=== PATIENT | female | born 1970 | race Caucasian/White ===

== ENCOUNTER 2017-01-10 17:20 | Emergency (ER) | payer BC ==
--- NOTE | 2017-01-10 20:42 | RAD ---
INDICATION: Chest pain COMPARISON: None TECHNIQUE: PA and lateral dual-energy views were obtained. FINDINGS: Bones/Soft Tissues: There are no acute bony findings. Cardiomediastinal: The cardiomediastinal silhouette is normal. Lungs: There are no infiltrates. Pleura: There are no pleural effusions. Other: None IMPRESSION: NO ACTIVE DISEASE
--- NOTE | 2017-01-10 20:54 | ED ---
HPI Chest Pain - HPI Summary HPI Summary: 46 yr old female with the complaint of chest pain. Onset a couple of days ago after getting elbowed in the right chest wall by her kids. She has pain on movement and deep breath. She has not seen a bruise. She has had pain with movement. No SOB. No other complaints. - History of Current Complaint Chief Complaint: UCGeneralIllness Time Seen by Provider: 01/10/17 19:40 Hx Last Menstrual Period: 12/20/16 - Allergy/Home Medications Allergies/Adverse Reactions: Allergies Allergy/AdvReac Type Severity Reaction Status Date / Time Latex Allergy Rash Verified 01/10/17 18:01 Home Medications: Home Medications Ibuprofen TAB* [Advil TAB*] 400 mg PO Q6H PRN 01/10/17 [History Confirmed ] PMH/Surg Hx/FS Hx/Imm Hx Previously Healthy: Yes Endocrine/Hematology History: Denies: Hx Anticoagulant Therapy, Hx Diabetes, Hx Thyroid Disease Cardiovascular History: Denies: Hx Congestive Heart Failure, Hx Deep Vein Thrombosis, Hx Hypertension , Hx Myocardial Infarction, Hx Pacemaker/ICD Respiratory History: Denies: Hx Asthma, Hx Chronic Obstructive Pulmonary Disease (COPD), Hx Lung Cancer, Hx Pneumonia, Hx Pulmonary Embolism GI History: Denies: Hx Gall Bladder Disease, Hx Gastrointestinal Bleed, Hx Ulcer, Hx Urosepsis History: Denies: Hx Kidney Stones, Hx Renal Disease Musculoskeletal History: Reports: Other Musculoskeletal History - chest wall pain Neurological History: Reports: Hx Seizures - Until she was [age] years old "due to her ." Denies: Hx Dementia, Hx Migraine, Hx Transient Ischemic Attacks (TIA) Psychiatric History: Denies: Hx Anxiety, Hx Depression, Hx Schizophrenia, Hx Bipolar Disorder - Surgical History Surgery Procedure, Year, and Place: tubal ligation. TONSILLECTOMY Infectious Disease History: No Infectious Disease History: Denies: History Other Infectious Disease, Traveled Outside the [place] in Last 30 Days - Family History Known Family History: Positive: Cardiac Disease, Hypertension, Diabetes - Social History Alcohol Use: Rare Substance Use Type: Reports: None Smoking Status (MU): Never Smoked Tobacco Review of Systems Constitutional: Negative Positive: Other - chest wall pain Negative: Bruising All Other Systems Reviewed And Are Negative: Yes Physical Exam Triage Information Reviewed: Yes Vital Signs On Initial Exam: Initial Vitals Temp Pulse Resp BP Pulse Ox 98.9 F 73 16 110/63 100 01/10/17 17:55 01/10/17 17:55 01/10/17 17:55 01/10/17 17:55 01/10/17 17:55 Vital Signs Reviewed: Yes Appearance: Positive: Well-Appearing, No Pain Distress Skin: Positive: Warm Head/Face: Positive: Normal Head/Face Inspection Eyes: Positive: EOMI Neck: Positive: Nontender Respiratory/Lung Sounds: Positive: Clear to Auscultation, Breath Sounds Present , Other - tender over the right chest wall, no bruises. Cardiovascular: Positive: RRR. Negative: Murmur Abdomen Description: Positive: Nontender Musculoskeletal: Positive: Strength/ROM Intact Neurological: Positive: Sensory/Motor Intact, Alert, Oriented to Person Place, Time, CN Intact II-III Psychiatric: Positive: Normal - Harvinder Coma Scale Best Eye Response: 4 - Spontaneous Best Motor Response: 6 - Obeys Commands Best Verbal Response: 5 - Oriented Diagnostics - Vital Signs Vital Signs Temp Pulse Resp BP Pulse Ox 01/10/17 17:55 98.9 F 73 16 110/63 100 - Laboratory Lab Statement: Any lab studies that have been ordered have been reviewed, and results considered in the medical decision making process. - Radiology chest Xray Interpretation: No Acute Changes Radiology Interpretation Completed By: Radiologist Chest Pain Course/Dx - Course Course Of Treatment: 46 yr old with rib pain after getting poked by her kids elbow. DC home. - Diagnoses Provider Diagnoses: Chest wall pain Discharge - Discharge Plan Condition: Good Disposition: HOME Patient Education Materials: Chest Wall Pain (ED) Referrals: JASPER Garcia [Primary Care Provider] -
[2017-01-10 21:04] VITALS: BP 105/67
== END 2017-01-10 21:22 | disposition home or self-care (01) ==
LOC: UCCORT 17:20
DX: R07.89 Other chest pain (principal); Z91.040 Latex allergy status
CPT/HCPCS: 71020; 99212; G0463

== ENCOUNTER 2018-11-03 21:24 | Emergency (ER) | payer BC ==
[2018-11-03 21:37] VITALS: BP 110/53
--- NOTE | 2018-11-03 21:39 | UC ---
Ear Complaint HPI - HPI Summary HPI Summary: 48-year-old female who is had right ear pain over the past 2 days tonight it's reading down into her throat. She denies any fever or chills. - History of Current Complaint Chief Complaint: UCEar Stated Complaint: RIGHT EAR Time Seen by Provider: 11/03/18 21:26 Hx Obtained From: Patient Hx Last Menstrual Period: 10/16/18 ?: No Onset/Duration: Gradual Onset Severity Initially: Mild Severity Currently: Mild Pain Intensity: 5 Aggravating Factors: Nothing Alleviating Factors: Nothing - Allergies/Home Medications Allergies/Adverse Reactions: Allergies Allergy/AdvReac Type Severity Reaction Status Date / Time bee venom protein (honey bee) Allergy Anaphylatic Verified 11/03/18 21:38 Shock latex Allergy Rash Verified 11/03/18 21:38 Home Medications: Home Medications EPINEPHrine [Epipen] 0.3 mg IJ SEE INSTRUCTIONS 11/03/18 [History Confirmed ] PMH/Surg Hx/FS Hx/Imm Hx Previously Healthy: Yes Other History Of: Negative For: HIV, Hepatitis B, Hepatitis C, Anticoagulant Therapy - Surgical History Surgical History: Yes Surgery Procedure, Year, and Place: tubal ligation. TONSILLECTOMY - Family History Known Family History: Positive: Cardiac Disease, Hypertension, Diabetes - Social History Alcohol Use: Rare Substance Use Type: None Smoking Status (MU): Never Smoked Tobacco - Immunization History Most Recent Influenza Vaccination: none Most Recent Tetanus Shot: WITHIN 5 YEARS Review of Systems All Other Systems Reviewed And Are Negative: Yes ENT: Positive: Ear Ache - Earache right ear which shoots down into the right side of her throat. Is Patient Immunocompromised?: No Physical Exam Triage Information Reviewed: Yes Appearance: Well-Appearing, No Pain Distress, Well-Nourished Vital Signs: Initial Vital Signs Temp 99.5 F 11/03/18 21:33 Pulse 71 11/03/18 21:33 Resp 16 11/03/18 21:33 BP 110/53 11/03/18 21:33 Pulse Ox 100 11/03/18 21:33 Vital Signs Reviewed: Yes Eyes: Positive: Conjunctiva Clear ENT: Positive: Pharynx normal, Uvula midline, Other - Left tympanic primary is pearly-contreras with good land may and light reflex, right tympanic membrane unable to visualize due to cerumen in ear canal. Neck: Positive: Supple, Nontender, No Lymphadenopathy Musculoskeletal Exam: Normal Neurological Exam: Normal Psychological Exam: Normal Skin Exam: Normal Ear Complaint Course/Dx - Course Course Of Treatment: The right ear canal was irrigated with warm water and a cerumen impaction was successfully removed. The patient tolerated procedure well. The right tympanic membrane is pearly-contreras with good land may and light reflex. - Differential Dx/Diagnosis Provider Diagnosis: Right ear impacted cerumen Discharge - Sign-Out/Discharge Documenting (check all that apply): Patient Departure All imaging exams completed and their final reports reviewed: No Studies - Discharge Plan Condition: Good Disposition: HOME Patient Education Materials: Cerumen Impaction (ED) Referrals: [facility] [Outside] Additional Instructions: Follow-up with your primary care provider if any further concerns or if you develop ear pain over the next 2 or 3 days. - Billing Disposition and Condition Condition: GOOD Disposition: Home - Attestation Statements Provider Attestation: I was available for consult. This patient was seen by the SUKUMAR. The patient was not presented to, seen by, or examined by me. -[place]
== END 2018-11-03 21:55 | disposition home or self-care (01) ==
LOC: UCCORT 21:24
DX: H61.21 Impacted cerumen, right ear (principal); Z91.030 Bee allergy status; Z91.040 Latex allergy status
CPT/HCPCS: 99211; G0463

== ENCOUNTER 2019-03-22 20:22 | Emergency (ER) | payer BC ==
[2019-03-22 20:45] VITALS: BP 100/54
--- NOTE | 2019-03-22 21:43 | UC ---
Head Injury HPI - HPI Summary HPI Summary: 48 yo female slipped and fell hitting right side of head 2 days ago since then ZAMBRANO/nausea/dizziness no vomiting having trouble functioning at work no neck pain no prior hx head injury - History Of Current Complaint Chief Complaint: UCGeneralIllness Stated Complaint: S/P FALL, HEADACHE, DIZZINESS Time Seen by Provider: 03/22/19 20:53 Hx Obtained From: Patient Hx Last Menstrual Period: Jan 2019; menses "every other month now" Onset/Duration: Sudden Onset, Lasting Days Severity Currently: Moderate Severity Initially: Moderate Pain Intensity: 3 Pain Scale Used: 0-10 Numeric Character: Throbbing Aggravating Factor(s): Nothing Alleviating Factor(s): Nothing Associated Signs And Symptoms: Positive: Nausea - Allergies/Home Medications Allergies/Adverse Reactions: Allergies Allergy/AdvReac Type Severity Reaction Status Date / Time bee venom protein (honey bee) Allergy Anaphylatic Verified 03/22/19 20:32 Shock latex Allergy Rash Verified 03/22/19 20:32 Home Medications: Home Medications Meloxicam [Mobic] 1 tab DAILY 03/22/19 [History Confirmed 03/22/19] PMH/Surg Hx/FS Hx/Imm Hx Previously Healthy: Yes Other History Of: Negative For: HIV, Hepatitis B, Hepatitis C, Anticoagulant Therapy - Surgical History Surgical History: Yes Surgery Procedure, Year, and Place: tubal ligation. TONSILLECTOMY - Family History Known Family History: Positive: Cardiac Disease, Hypertension, Diabetes - Social History Alcohol Use: Rare Substance Use Type: None Smoking Status (MU): Never Smoked Tobacco - Immunization History Most Recent Influenza Vaccination: none Most Recent Tetanus Shot: WITHIN 5 YEARS Review of Systems All Other Systems Reviewed And Are Negative: Yes Constitutional: Positive: Fatigue Skin: Positive: Negative Eyes: Positive: Negative ENT: Positive: Negative Respiratory: Positive: Negative Cardiovascular: Positive: Negative Gastrointestinal: Positive: Nausea Motor: Positive: Negative Neurovascular: Positive: Negative Musculoskeletal: Positive: Negative Neurological: Positive: Headache Psychological: Positive: Negative Physical Exam Triage Information Reviewed: Yes Appearance: Well-Appearing, No Pain Distress, Well-Nourished Vital Signs: Initial Vital Signs Temp 99.4 F 03/22/19 20:32 Pulse 90 03/22/19 20:32 Resp 16 03/22/19 20:32 BP 100/54 01/02/20 20:32 Pulse Ox 100 03/22/19 20:32 Vital Signs Reviewed: Yes Eyes: Positive: Conjunctiva Clear ENT: Positive: Normal ENT inspection, Hearing grossly normal, TMs normal, Uvula midline. Negative: Nasal congestion, Nasal drainage, Tonsillar swelling, Tonsillar exudate, Hoarse voice Neck: Positive: Supple, Nontender, No Lymphadenopathy Respiratory: Positive: Lungs clear, Normal breath sounds, No respiratory distress, No accessory muscle use Cardiovascular: Positive: RRR, No Murmur, Pulses Normal Diagnostics - Radiology No standard instances Radiology Interpretation Completed By: Radiologist Summary of Radiographic Findings: CT brain negative Head Injury Course/Dx - Differential Dx/Diagnosis Provider Diagnosis: Concussion without loss of consciousness Discharge ED - Sign-Out/Discharge Documenting (check all that apply): Patient Departure All imaging exams completed and their final reports reviewed: Yes - concusio - Discharge Plan Condition: Stable Disposition: HOME Patient Education Materials: Concussion (ED) Forms: *Work Release Referrals: Carmen Duarte MD [Primary Care Provider] - 5 Days (if not better) Additional Instructions: rest both physical and mental - Billing Disposition and Condition Condition: STABLE Disposition: Home
== END 2019-03-22 22:51 | disposition home or self-care (01) ==
LOC: UCCORT 20:22
DX: S06.0X0A Concussion without loss of consciousness, initial encounter (principal); Z91.030 Bee allergy status; Z91.040 Latex allergy status; W01.0XXA Fall on same level from slipping, tripping and stumbling without subsequent striking against object, initial encounter; Y92.9 Unspecified place or not applicable
CPT/HCPCS: 70450; 99211; G0463

== ENCOUNTER 2020-08-01 11:13 | Observation (INO) ==
[~2020-08-01 11:13] MED LIST: Buffered Lidocaine 1% SYRIN 1 ml INTRADERM ONE; Lactated Ringers 1000 ml BAG 1,000 ML IV SCH; Lidocaine 2% PF 5 ML VIAL ONE; Midazolam 2 mg/2 ml VIAL 1 mg/ml 2 ml VIAL (2 mg) ONE; fentaNYL 250 mcg/5 ml 50 MCG/ML 5 ml VIAL (250 MCG) ONE
[2020-08-01] MEDS ORDERED: ceFAZolin 2 GM PREMIX 2 GM/50 ML BAG ONE (11:49)
[2020-08-01] MEDS ORDERED: Ondansetron ODT 4 mg TAB 4 MG TAB ONE (11:53)
[2020-08-01] MEDS ORDERED: Chlorhexidine MOUTHWASH 0.12% 15 ML UDC ONE ×2 (14:29→15:10)
[2020-08-01] MEDS ORDERED: Heparin 5000 UNITS/ML 1 mL VIAL ONE (14:29)
[2020-08-01] MEDS ORDERED: Lidocaine 1% w EPI 1:100,000 MDV 20 ML VIAL ONE (14:29)
[2020-08-01] MEDS ORDERED: Bupivacaine 0.5% SDV PF 30ML VIAL ONE (14:29)
[2020-08-01] MEDS ORDERED: Rocuronium 50 mg VIAL 10 mg/ml 5 ml VIAL (50 mg) ONE ×2 (14:55→17:56)
[2020-08-01] MEDS ORDERED: Propofol 10 MG/ML 20 ML BTL ONE (14:57)
[2020-08-01] MEDS ORDERED: Ondansetron 4 mg VIAL 2 MG/ML 2 ml VIAL ONE (17:54)
[2020-08-01] MEDS ORDERED: DiMENhydriNATE IV 50 mg/ml 1 ml VIAL IV PUSH PRN (19:14)
[2020-08-01] MEDS ORDERED: Naloxone 0.4 mg VIAL 0.4 mg/ml 1 ml VIAL IV PRN (19:14)
[2020-08-01] MEDS ORDERED: HYDROmorphone 1 MG/1 ML SYRINGE IV PRN (19:14)
[2020-08-01] MEDS ORDERED: ceFAZolin VIAL VIAL ONE (19:30)
[2020-08-01] MEDS ORDERED: Acetaminophen IV 1 GM/100ML 100 ML ONE (19:35)
[2020-08-02] MEDS ORDERED: oxyCODONE/Acetamin 5/325 mg TAB PO PRN (02:24)
[2020-08-02 08:09] VITALS: BP 99/50
== END 2020-08-02 11:45 | disposition home or self-care (01) ==
LOC: OR 11:13 → SSU 11:13
PROVIDERS: ADMIT Obstetrics & Gynecology; ATTEND Obstetrics & Gynecology